=== PATIENT | female | born 1955 | race Caucasian/White ===

== ENCOUNTER 2022-10-20 10:45 | Outpatient (AMB) | payer OTHER, SELFPAY ==
[2022-10-20 11:10] VITALS: BP 108/78; PULSE 56; O2SAT 97; BMI 25.7
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
== END 2022-10-20 11:44 | disposition home or self-care (01) ==
PROVIDERS: Visit Provider Psychiatry & Neurology Neurology
DX: R40.4 Transient alteration of awareness (principal); R06.83 Snoring; G47.10 Hypersomnia, unspecified
CPT/HCPCS: 99204

== ENCOUNTER → 2022-10-20 10:45 | Outpatient (BNVA) | payer OTHER, SELFPAY | PROVIDERS: Visit Provider Psychiatry & Neurology Neurology ==

== ENCOUNTER → 2022-11-23 09:57 | Outpatient (REF) | payer OTHER, SELFPAY | LOC: HO.SL 09:57 | PROVIDERS: PCP Nurse Practitioner Adult Health; Visit Provider Psychiatry & Neurology Neurology | DX: G47.33 Obstructive sleep apnea (adult) (pediatric) (principal); G47.10 Hypersomnia, unspecified; R06.83 Snoring | CPT/HCPCS: 95806 ==

== ENCOUNTER → 2022-11-23 10:06 | Outpatient (BNV) | payer OTHER, SELFPAY | PROVIDERS: PCP Nurse Practitioner Adult Health; Visit Provider Psychiatry & Neurology Neurology | DX: G47.33 Obstructive sleep apnea (adult) (pediatric) (principal) | CPT/HCPCS: 95806 ==

== ENCOUNTER 2023-01-26 12:44 | Outpatient (AMB) | payer OTHER, SELFPAY ==
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
[2023-01-26 12:48] VITALS: BP 132/70; PULSE 84; RESP 16; O2SAT 94; BMI 24.3
== END 2023-01-26 13:24 | disposition home or self-care (01) ==
PROVIDERS: PCP Nurse Practitioner Adult Health; Visit Provider Psychiatry & Neurology Neurology
DX: G47.33 Obstructive sleep apnea (adult) (pediatric) (principal)
CPT/HCPCS: 99214

== ENCOUNTER → 2023-01-26 12:44 | Outpatient (BNVA) | payer OTHER, SELFPAY | PROVIDERS: PCP Nurse Practitioner Adult Health; Visit Provider Psychiatry & Neurology Neurology ==

== ENCOUNTER 2023-11-15 07:25 | Outpatient (AMB) | payer OTHER, SELFPAY ==
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
[2023-11-15 07:32] VITALS: BP 110/62; PULSE 80; RESP 16; O2SAT 95; BMI 25.1
== END 2023-11-15 07:51 | disposition home or self-care (01) ==
PROVIDERS: Absent Provider Psychiatry & Neurology Neurology; PCP Nurse Practitioner Adult Health; Visit Provider Psychiatry & Neurology Neurology
DX: G47.33 Obstructive sleep apnea (adult) (pediatric) (principal)
CPT/HCPCS: 99214

== ENCOUNTER → 2023-11-15 07:25 | Outpatient (BNVA) | payer OTHER, SELFPAY | PROVIDERS: Absent Provider Psychiatry & Neurology Neurology; PCP Nurse Practitioner Adult Health; Visit Provider Psychiatry & Neurology Neurology | DX: G47.33 Obstructive sleep apnea (adult) (pediatric) (principal) ==

== ENCOUNTER 2024-11-07 07:57 | Outpatient (AMB) | payer OTHER, SELFPAY ==
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
[2024-11-07 08:00] VITALS: BP 112/64; PULSE 62; O2SAT 96; BMI 30.1
--- OUTSIDE RECORDS SUMMARY | 2024-11-07 08:00 | XMS_ITS | Patient Health Record ---
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 Name Role Phone Son THOMAS, Carolyn Primary Care Provi erickson Unavailable Torsten Burch Unavailable [phone] Allergies Allergen (clinical drug ingredient) Drug/Non Drug Allergy documented on EMR Reaction Allergy Type Onset Date Status Information temporarily unavailable injectable steroids(cortisone) refuses Drug Allergy Active Information temporarily unavailable Z pack can't remember Drug Allergy Active Information temporarily unavailable Biaxin can't remember Drug Allergy Active Information temporarily unavailable Erythromycin anaphylaxis Drug Allergy Active Information temporarily unavailable sulfa anaphylaxis Drug Allergy Active Information temporarily unavailable Codeine constipation Drug Allergy Active Information temporarily unavailable Morphine anaphylaxis Drug Allergy Active Information temporarily unavailable adhesive tape rash Drug Allergy Active Reason For Referral No Information Medications Medication SIG (Take, Route, Frequency, Duration) Notes Start Date End Date Status Aspirin Active clonazePAM Active ProAir HFA 108 (90 Base) MCG/ACT 2 puffs as needed Inhalation every 4 hrs Active Singulair 10 MG 1 tablet in the even ing Orally Once a day; Duration: 30 day(s) Active Fish Oil Active Flecainide Acetate 150 MG 1 tablet Orall y every 12 hrs; Duration: 30 day(s) Active Problems No Known Problems Plan Of Treatment No Information Insurance Providers Payer Name Payer Address Payer Phone Subscriber Number Group Number Insured Name Patient Relationship to Insured Coverage Start Date Coverage End Date [facility] [address] [place] [address] [id number] Leigh Persaud Self - patient is the insured Medical (General) History Medical History History ICD Code bone implants/screws measles chicken pox headaches/migraines back, hip, knee pain asthma narrow angled glaucoma Surgical History Surgery Date(Month/Year) section elbow sx knee surgery, right shoulder surgery
== END 2024-11-07 08:22 | disposition home or self-care (01) ==
LOC: HO.HSMS 07:57
PROVIDERS: PCP Nurse Practitioner Adult Health; Visit Provider Psychiatry & Neurology Neurology
DX: G47.33 Obstructive sleep apnea (adult) (pediatric) (principal)
CPT/HCPCS: 99214